=== PATIENT | male | born 1950 | race Caucasian/White ===

== ENCOUNTER → 2020-07-30 | Outpatient (CLI) | payer MEDICARE, OTHER ==
--- NOTE | 2020-07-30 16:14 | RAD ---
EXAM: ABDOMINAL ULTRASOUND. HISTORY: Abnormal liver function tests. COMPARISON: None. FINDINGS: Sonographic evaluation of the abdomen was performed. The liver appears enlarged and increased in echogenicity. It measures 18.6 cm in length. There are no focal lesions. The spleen is enlarged and measures 14.1 cm. The gallbladder is unremarkable without evidence of stones, wall thickening or pericholecystic fluid. There is no sonographic Hall sign. The common duct measures 4 mm. Pancreas is poorly visualized du e to bowel gas. The right kidney measures 12.7 x 4.9 x 6.0 cm. Cortical thickness and echogenicity are preserved. The re is no hydronephrosis. The left kidney measures 13.7 x 4.8 x 6.4 cm. Cortical thickness and echogen icity are preserved. There is no hydronephrosis. Abdominal aorta and IVC are poorly visualized. The distal abdominal aorta is unremarkable. IMPRESSION: 1. Hepatomegaly and hepatic steatosis and mild splenomegaly. 2. No evidence of cholelithiasis, acute cholecystitis, or biliary obstruction. Electronically signed by: Patricia Mcfadden MD (07/30/2020 4:11 PM) [id number]
== END ==
LOC: US 10:41
PROVIDERS: ATTEND Family Medicine
DX: R16.2 Hepatomegaly with splenomegaly, not elsewhere classified (principal); R94.5 Abnormal results of liver function studies; K76.0 Fatty (change of) liver, not elsewhere classified
CPT/HCPCS: 76700

== ENCOUNTER → 2020-11-06 | Outpatient (CLI) | payer MEDICARE, OTHER ==
[2020-10-27 08:56] VITALS: BP 130/82
[~2020-11-06] MED LIST: ASPI-630 PO; COLE625T12 PO; EMPA10TA PO; EXEN2AUT SQ; FENO160T PO; FINA5TAB4 PO; GABA600T7 PO; ICOS1CAP PO; LOTEMAX; METF10007 PO; MULT-658 PO; OMEP20CA16 PO; VERAPAMIL; flecainide
== END ==
LOC: LAB 09:11
PROVIDERS: ATTEND Nurse Anesthetist, Certified Registered
DX: Z01.812 Encounter for preprocedural laboratory examination (principal); D64.9 Anemia, unspecified; Z20.822 Contact with and (suspected) exposure to COVID-19
CPT/HCPCS: U0003

== ENCOUNTER → 2020-11-11 | Day surgery (SDC) | payer MEDICARE, OTHER ==
[~2020-11-11] MED LIST changes: +IPRATRPIUM/ALBUTEROL 0.5/2.5MG 3 ML NEBU. NEB PRN; +IV RINGERS SOLUTION,LACTATED 1,000 ML IV SCH; +MIDAZOLAM HCL PF 2 MG/2 ML VIAL. IV ONE; +ONDANSETRON PF 4 MG/2 ML VIAL. IV PRN; +PROPOFOL 10,000 MCG/ML (20ML) VIAL IV ONE
[2020-11-11 09:43] VITALS: BP 118/75
--- NOTE | 2020-11-17 15:17 | PATHOLOGY ---
[facility] Accession Number: [id number] . 01 Material submitted: . stomach - ANTRUM . 01 Clinical history: . ESOPHAGOGASTRODUODENOSCOPY IRON DEFICIENCY EGD GASTRITIS AND ESOPHAGITIS ANTRUM FOR H. PYLORI . 02 Diagnosis: Gastric biopsy, antrum: - Congestion and mild chronic inflammation. (JPM:pit; 11/17/2020) [facility] 11/17/2020 0854 Local . 02 Comment: Sections of the gastric antral biopsy reveal gastric antral/body transition mucosa showing congestion and very mild chronic inflammation. A properly controlled immunoperoxidase stain for Helicobacter is negative for Helicobacter organisms. (JPM:pit; 11/17/2020) . Special stain performed: Immunoperoxidase for Helicobacter. . 02 Electronically signed: . Kenny Phillips MD, Pathologist NPI- [id number] . 01 Gross description: . The specimen is received in formalin, labeled "Denny Avila", "antrum for H. pylori". Received is a single segment of pale osuna soft tissue measuring 0.3 cm. The specimen is entirely submitted in cassette A1. ([facility]; 11/13/2020) [facility] 11/13/2020 0957 Local . 02 Pathologist provided ICD-10: K31.89, K29.50 . 02 CPT . 398673, [id number] Specimen Comment: A courtesy copy of this report has been sent to [phone], [phone] Specimen Comment: [id number] Specimen Comment: Report sent to / DR ZABALA Performed at: [address], [place], [place] [id number] MD Valdez Sharma MD Phone: [phone] Performed at: 02 [facility] [address] [place], [place] [id number] MD Kenny Phillips MD Phone: [phone]
== END | disposition home or self-care (01) ==
LOC: SURG 08:18
PROVIDERS: ATTEND Surgery
DX: D50.9 Iron deficiency anemia, unspecified (principal); K21.00 Gastro-esophageal reflux disease with esophagitis, without bleeding; K29.50 Unspecified chronic gastritis without bleeding; K31.89 Other diseases of stomach and duodenum; E11.9 Type 2 diabetes mellitus without complications; K76.0 Fatty (change of) liver, not elsewhere classified; Z79.899 Other long term (current) drug therapy; Z79.82 Long term (current) use of aspirin; Z79.84 Long term (current) use of oral hypoglycemic drugs
CPT/HCPCS: 43239; 82947; 88305; 88342; C1725; J2704; J7120; 43202

== ENCOUNTER → 2021-04-08 | Outpatient (CLI) | payer MEDICARE, OTHER ==
[2020-11-11 09:43] VITALS: BP 118/75
[~2021-04-08] MED LIST changes: -IPRATRPIUM/ALBUTEROL 0.5/2.5MG 3 ML NEBU. NEB PRN; -IV RINGERS SOLUTION,LACTATED 1,000 ML IV SCH; -MIDAZOLAM HCL PF 2 MG/2 ML VIAL. IV ONE; -ONDANSETRON PF 4 MG/2 ML VIAL. IV PRN; -PROPOFOL 10,000 MCG/ML (20ML) VIAL IV ONE
--- NOTE | 2021-04-08 13:36 | RAD ---
INDICATION: Screening for osteopenia/osteoporosis. Reason: screening for osteoporosis - hx cirrhosis of the liver - CEDENO / Spl. Instructions: / History: COMPARISON: None. TECHNIQUE: Bone densitometry was performed through the lumbar spine and proximal femur. IMPRESSION: Lumbar Spine: BMD: 1.4 T-Score: 2.4 Range: Normal range. Degenerative changes. Proximal Femur: BMD: 0.9 T-Score: -0.4 Range: Normal World Health Organization Criteria for Bone Density: T-Score: > -1.0: Normal Range < -1.0 to -2.5: Osteopenic Range < -2.5: Osteoporotic Range Electronically signed by: Ru Camilo MD (04/08/2021 1:34 PM) [id number]
== END ==
LOC: DXRAD 11:47
PROVIDERS: ATTEND Nurse Practitioner Family
DX: Z13.820 Encounter for screening for osteoporosis (principal); S42.402A Unspecified fracture of lower end of left humerus, initial encounter for closed fracture; M85.832 Other specified disorders of bone density and structure, left forearm; K74.60 Unspecified cirrhosis of liver; K75.81 Nonalcoholic steatohepatitis (NASH); X58.XXXA Exposure to other specified factors, initial encounter; Y93.89 Activity, other specified; Y92.89 Other specified places as the place of occurrence of the external cause; Y99.8 Other external cause status
CPT/HCPCS: 77080